=== PATIENT | male | born 1995 | race Caucasian/White ===

== ENCOUNTER 2017-12-18 14:26 | Emergency (ER) | payer MEDICAID ==
[~2017-12-18] VITALS: Ht 175.3 cm; Wt 90.0 kg
[2017-12-18] MEDS ORDERED: ONDANSETRON HCL 4MG/2ML INJ IV STA (15:01)
[2017-12-18] MEDS ORDERED: SODIUM CHLORIDE 0.9% 1,000 ML IV ONE (15:01)
[2017-12-18] MEDS ORDERED: LEVETIRACETAM 500MG PREMIX 100 ML IV ONE (15:45)
[2017-12-18 15:55] LABS: BASOPHILS % 0.8 % (0.0-2.0); EOSINOPHILS % 3.1 % (0.0-5.0); HEMOGLOBIN. 15.6 g/dL (14.0-18.0); LYMPHOCYTES % 14.4 % (20.0-50.0); MEAN CORPUSCULAR HEMOGLOBIN 29.5 pg (28.0-32.0); MEAN CORPUSCULAR VOLUME 86.8 fL (80.0-94.0); MEAN PLATELET VOLUME 7.6 fl (7.4-10.4); MONOCYTES % 1.8 % (2.0-8.0); NEUTROPHILS % 79.9 % (40.0-76.0); PLATELET 344 x1000/uL (130-400); RED CELL DISTRIBUTION WIDTH 13.5 % (11.6-14.6)
[2017-12-18 16:00] LABS: CHLORIDE 108 mEq/L (98-107)
[2017-12-18 16:01] LABS: PROTHROMBIN TIME 10.2 sec (9.1-11.1)
[2017-12-18 16:06] LABS: ETHANOL BLOOD < 10 mg/dL
[2017-12-18 16:10] LABS: CREATINE KINASE 303 IU/L (39-308); VALPROIC ACID < 3.0 ug/mL (50-100)
[2017-12-18 16:15] LABS: CARBAMAZEPINE < 0.5 ug/mL (4-12); PHENOBARBITAL < 2.1 ug/mL (15.0-40.0)
[2017-12-18 16:34] LABS: HEPATITIS B SURFACE ANTIGEN NEGATIVE
[2017-12-18 17:03] LABS: HEPATITIS B CORE AB IGM NEGATIVE
[2017-12-18 17:04] LABS: HEPATITIS A AB IGM NEGATIVE (NEGATIVE)
[2017-12-18 19:25] LABS: *BARBITURATES SCREEN URINE NEGATIVE (NEGATIVE)
[2017-12-18 19:26] LABS: *AMPHETAMINES SCREEN URINE NEGATIVE (NEGATIVE); *BENZODIAZEPINES SCREEN URINE PRESUMTIVE POSITIVE (NEGATIVE); *COCAINE SCREEN URINE NEGATIVE (NEGATIVE); METHADONE URINE SCREEN NEGATIVE (NEGATIVE); OPIATES URINE SCREEN NEGATIVE (NEGATIVE); PHENCYCLIDINE URINE SCREEN NEGATIVE (NEGATIVE)
[2017-12-18 19:27] LABS: CANNABINOID URINE SCREEN PRESUMTIVE POSITIVE (NEGATIVE)
[2017-12-18 19:31] LABS: CLARITY URINE CLEAR (CLEAR); COLOR URINE YELLOW (YELLOW); KETONES URINE NEGATIVE (NEGATIVE); LEUKOCYTE ESTERASE URINE NEGATIVE (NEGATIVE); NITRITE URINE NEGATIVE (NEGATIVE); OCCULT BLOOD URINE NEGATIVE (NEGATIVE); PROTEIN URINE 1+ (NEGATIVE); SPECIFIC GRAVITY URINE 1.016 (1.005-1.030); UROBILINOGEN URINE 0.2 E.U./dL (0.2-1.0)
[2017-12-18 20:03] VITALS: BP 125/78
== END 2017-12-18 20:18 | disposition home or self-care (01) ==
LOC: ER 14:26
DX: G40.909 Epilepsy, unspecified, not intractable, without status epilepticus (principal); T40.7X1A Poisoning by cannabis (derivatives), accidental (unintentional), initial encounter; G92 Toxic encephalopathy; F12.188 Cannabis abuse with other cannabis-induced disorder; Y92.29 Other specified public building as the place of occurrence of the external cause; E86.0 Dehydration; R03.0 Elevated blood-pressure reading, without diagnosis of hypertension; Z78.1 Physical restraint status
CPT/HCPCS: 36415; 80053; 80156; 80165; 80184; 80185; 80305; 81003; 82550; 83880; 84443; 84484; 85025; 85610; 86703; 93005; 96365; 96375; 99285; G0482; J1953; J2405; J7030; 86705; 86709; 86803; 87340